=== PATIENT | female | born 1940 | race Caucasian/White ===

== ENCOUNTER → 2021-10-06 12:21 | Outpatient (BNVA) | payer MEDICARE, SELFPAY | PROVIDERS: Family Provider Nurse Practitioner Family; PCP Family Medicine; Visit Provider Family Medicine | DX: R41.3 Other amnesia (principal) | CPT/HCPCS: 80053; 82607; 84443; 85025 ==

== ENCOUNTER 2022-05-10 11:38 | Outpatient (CLI) | payer MEDICARE, SELFPAY ==
--- NOTE | 2022-05-10 11:46 | MM_ITS ---
WS: [id number] BILATERAL SCREENING DIGITAL TOMOSYNTHESIS MAMMOGRAM WITH CAD HISTORY: breast cancer screening COMPARISON: 01/23/2018, 12/06/2016 Bilateral CC and MLO views with tomosynthesis and synthetic mammography submitted. Computer aided det ection analyzed. Breast composition: The breasts are heterogeneously dense, which may obscure small masses. No suspici ous masses, microcalcifications or architectural distortion. Long-term stability 11 mm mass in the up per outer quadrant of the RIGHT breast. Benign bilateral breast calcifications. MM/[place] [id number] IMPRESSION: BI-RADS: 2-Benign FOLLOW UP: 1 Year Follow-up
== END 2022-05-10 11:39 | disposition home or self-care (01) ==
LOC: RAD 11:42
PROVIDERS: PCP Family Medicine; Visit Provider Family Medicine
DX: Z12.39 Encounter for other screening for malignant neoplasm of breast (principal); I10 Essential (primary) hypertension; R41.3 Other amnesia; Z85.41 Personal history of malignant neoplasm of cervix uteri
CPT/HCPCS: 77063; 77067; 80053; 80061; 82607; 84443; 85025

== ENCOUNTER 2023-06-11 11:35 | Emergency (ER) | payer MEDICARE, MEDICAID, SELFPAY ==
--- NOTE | 2023-06-11 11:35 | XRR_ITS ---
PROCEDURE INFORMATION: Exam: XR Chest Exam date and time: 06/11/2023 11:41 AM Age: 83 years old Clinical indication: Pain; Angina pectoris; Additional info: Cp TECHNIQUE: Imaging protocol: Radiologic exam of the chest. Views: 1 view. COMPARISON: No relevant prior studies available. FINDINGS: Lungs: The visualized lungs are clear. Pleural spaces: There is no pneumothorax. Heart/Mediastinum: There is a large hiatal hernia with elevation of the left hemidiaphragm. The heart size is not well assessed. Bones/joints: Unremarkable. XR/XR chest 1V portable 22012 IMPRESSION: 1. Large hiatal hernia with elevation of the left hemidiaphragm. 2. Otherwise no evidence of acute pulmonary process.
--- NOTE | 2023-06-11 11:38 | ECG_ITS ---
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 Measurements Intervals [place] Rate: 51 P: 97 TX: 183 QRS: -6 QRSD: 90 T: 58 QT: 441 QTc: 409 Interpretive Statements SINUS BRADYCARDIA No previous ECG available for comparison Electronically Signed On 06-11-2023 23:22:43 CDT by Henrique Brennan M.D. [id number]
[2023-06-11 11:45] VITALS: BP 104/67; PULSE 53; TEMP 36; O2SAT 95
--- NOTE | 2023-06-11 11:55 | CT_ITS ---
WS: [id number] CT HEAD NONCONTRAST HISTORY: dizzy TECHNIQUE: Contiguous axial imaging performed through the brain in 2.5 mm imaging. Bone and soft tiss ue windows. Sagittal and coronal reformats reviewed. All CT scans at [facility] use at least one of these dose optimization techniques: automated exposure control; mA and/or kV adjustment per pa tient size (includes targeted exams where dose is matched to clinical indication); or iterative recon struction. DLP: 1037.08 mGy.cm COMPARISON: None available. No acute intracranial hemorrhage, midline shift or mass effect. High density LEFT parafalcine supraventricular mass measures 14 x 7 mm. Mass extends to the LEFT of t he interhemispheric falx at the level of the posterior corpus callosum. There are a few punctate area s of calcification. Favor this is probably a meningioma. No edema within the adjacent brain. Ventricles: Normal size with no hydrocephalus. Paranasal sinuses: Small mucous retention cyst or polyp in the posterior RIGHT ethmoid air cells. No air-fluid levels. Mastoid air cells: Well pneumatized. Calvarium and scalp: Negative. CT/CT head wo con* [id number] IMPRESSION: 1. No acute intracranial hemorrhage or edema. 2. High density mass with calcification LEFT posterior parafalcine location me asures 14 x 7 mm. Favor meningioma. This can be further evaluated by MRI with c ontrast.
[2023-06-11 11:56] VITALS: BP 104/67; PULSE 55; RESP 16; O2SAT 98
[2023-06-11 11:59] LABS: Basophils % 0.2 %; Eosinophils % 0.1 %; Hematocrit 47.1 % (36-47); Lymphocytes # 1.6 10^3/uL (0.8-4.8); Mean Corpuscular HGB Conc 32.5 g/dL (30-55); Mean Corpuscular Hemoglobin 29.9 pg (27-33); Mean Corpuscular Volume 92.2 fl (85-98); Mean Platelet Volume 9.4 fL (7.4-10.4); Monocytes # 0.7 10^3/uL (0.2-0.9); Monocytes % 7.4 %; Neutrophils # 6.97 10^3/uL (1.8-7.7); Neutrophils % 74.9 %; Nucleated Red Blood Cells % 0 %; Platelet Count 270 10^3/cmm (157-399); Red Blood Count 5.11 10^6/uL (3.85-5.65); Red Cell Distribution Width 13.6 % (12.1-15.1); White Blood Count 9.31 10^3/uL (3.29-11.43)
--- NOTE | 2023-06-11 12:01 | ED_ITS ---
HPI - Syncope 2 General: Chief Complaint: Syncope Stated Complaint: Syncope Time Seen by Provider: 06/11/23 11:35 Source: patient and EMS Mode of arrival: EMS Limitations: no limitations History of Present Illness: 83-year-old female states she has had so me episodes of feeling lightheaded over the last 2 weeks she states she was at her PCP today states she had been fasting and felt some weakness and felt lightheaded she denies passing out she denies any headache or pain anywhere has had some slight nausea denies any vomiting or diarrhea states she feels improved here currently Associated symptoms: Reports nausea; Deny abdominal pain, chest pain, fever(s) or headache(s) Review of Systems 2 Const: Denies: fever(s), chills, body aches or change in appetite Eyes: Denies: blurry vision or eye discomfort ENMT: Denies: throat pain or dental pain Card: Reports: pre-syncope; Denies: chest pain Resp: Denies: dyspnea GI: Reports: nausea; Denies: abdominal pain, vomiting or diarrhea Musc: Denies: neck pain or back pain Skin/Breast: Denies: rash Neuro: Denies: headache(s) PFSH ED 2 PFSH: Medical History History of polycythemia vera Diaphragmatic hernia large left diaphragmatic hernia on outside imaging History of cervical cancer 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 on 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 Hypertension Surgical History History of bilateral knee replacement History of hysterectomy Family History Father CAD (coronary artery disease) Mother Cancer stomach Congestive heart failure (CHF) Daughter Cancer breast Social History Smoking and tobacco/nicotine status: never used tobacco/nicotine Alcohol intake: never Substance/Drug Use: never Physical Exam 2 Const: COMMON NORMALS: no acute distress, patient oriented x3 and healthy appearing HENMT: COMMON NORMALS: normocephalic and atraumatic HEAD & SCALP: n ormocephalic and atraumatic Eye: COMMON NORMALS: conjunctivae normal CONJUNCTIVA: Yes conjunctivae normal Neck/C-Spine: COMMON NORMALS: full ROM Chest: COMMONS NORMALS: normal inspection of the chest Resp: COMMON NORMALS: normal respiratory effort, No retractions, No use of accessory muscles and clear to auscultation bilaterally AUSCULTATION: clear to auscultation bilaterally Cardio: COMMON NORMALS: regular rate, regular rhythm and No murmurs present (Cardio) RATE: regular rate RHYTHM: regular rhythm GI: COMMON NORMALS: Normal to inspection, nondistended, normoactive bowel sounds present, Soft to palpation, non-tender and no masses PALPATION: Yes Soft to palpation Extremity: COMMON NORMALS: normal to inspection and full ROM Neuro: COMMON NORMALS: patient oriented x3, moves all extremities and no focal motor deficits Psych: COMMON NORMALS: mental status grossly normal, Normal thought process present and cooperative THOUGHT PROCESS: Normal thought process present Skin: COMMON NORMALS: no rashes or lesions noted and no wounds GENERAL SKIN EXAM: no rashes or lesions noted Course 2 Vital Signs: Vital signs: Vital Signs Temperature 96.8 F L 06/11/23 11:45 Pulse Rate 53 L 06/11/23 14:11 Respiratory Rate 16 06/11/23 14:11 Blood Pressure 92/61 06/11/23 14:11 Pulse Oximetry 94 06/11/23 14:11 Oxygen Delivery Me thod Room Air 06/11/23 14:11 MDM - Syncope Medical Decision Making Patient presents here with near syncopal episode she feels improved here blood work head CT is all normal she is not anemic no signs of cardiac cause she is stable for discharge she is follow-up with PCP and return if worsening she understands agrees to plan Medical Records I reviewed the patient's medical records. Lab Data I reviewed the patient's lab results. 06/11/23 11:54 06/11/23 11:54 Radiology Impressions Chest X-Ray 06/11/23 11:35 IMPRESSION: 1. Large hiatal hernia with elevation of the left hemidiaphragm. 2. Otherwise no evidence of acute pulmonary process. Head CT 06/11/23 11:55 IMPRESSION: 1. No acute intracranial hemorrhage or edema. 2. High density mass with calcification LEFT posterior parafalcine location measures 14 x 7 mm. Favor meningioma. This can be further evaluated by MRI with contrast. Laboratory Results WBC 9.31 10^3/uL (3.29-11.43) 06/11/23 11:54 RBC 5.11 10^6/uL (3.85-5.65) 06/11/23 11:54 Hgb 15.30 g/dL (11.27-16.99) 06/11/23 11:54 Hct 47.1 % (36-47) H 06/11/23 11:54 MCV 92.2 fl (85-98) 06/11/23 11:54 MCH 29.9 pg (27-33) 06/11/23 11:54 MCHC 32.5 g/dL (30-55) 06/11/23 11:54 RDW 13.6 % (12.1-15.1) 06/11/23 11:54 Plt Count 270 10^3/cmm (157-399) 06/11/23 11:54 MPV 9.4 fL (7.4-10.4) 06/11/23 11:54 Neut % (Auto) 74.9 % 06/11/23 11:54 Lymph % (Auto) 17.0 % 06/11/23 11:54 [place] % (Auto) 7.4 % 06/11/23 11:54 Eos % (Auto) 0.1 % 06/11/23 11:54 Baso % (Auto) 0.2 % 06/11/23 11:54 Neut # (Auto) 6.97 10^3/uL (1.8-7.7) 06/11/23 11:54 Lymph # (Auto) 1.6 10^3/uL (0.8-4.8) 06/11/23 11:54 [place] # (Auto) 0.7 10^3/uL (0.2-0.9) 06/11/23 11:54 Eos # (Auto) 0.0 10^3/uL (0.0-0.8) 06/11/23 11:54 Baso # (Auto) 0.0 10^3/uL (0.0-0.1) 06/11/23 11:54 Nucleated RBC % (auto) 0 % 06/11/23 11:54 Nucleated RBCs # 0.0 /100WBC 06/11/23 11:54 Sodium 141 mmol/L (136-145) 06/11/23 11:54 Potassium 3.9 mmol/L (3.5-5.1) 06/11/23 11:54 Chloride 101 mmol/L (98-107) 06/11/23 11:54 Carbon Dioxide 25 mmol/L (22-29) 06/11/23 11:54 Anion Gap 18.9 (5-19) 06/11/23 11:54 BUN 26 mg/dL (8-23) H 06/11/23 11:54 Creatinine 1.6 mg/dL (0.5-0.9) H 06/11/23 11:54 GFR Calculation Not Reportable 06/11/23 11:54 Glucose 147 mg/dL (65-115) H 06/11/23 11:54 Calculated Osmolality 299 mOsm/kg (285-295) H 06/11/23 11:54 Calcium 9.9 mg/dL (8.5-10.5) 06/11/23 11:54 Total Bilirubin 1.9 mg/dL (0.15-1.2) H 06/11/23 11:54 AST 14 U/L (0-32) 06/11/23 11:54 ALT 13 U/L (0-33) 06/11/23 11:54 Alkaline Phosphatase 68 U/L (35-105) 06/11/23 11:54 Troponin T Baseline 16 ng/L (0-10) H 06/11/23 11:54 Troponin T 120 Minute 14.23 ng/L (0-10) H 06/11/23 14:21 Delta Troponin T -1.77 ABS# (0-10) L 06/11/23 14:21 Total Protein 7.3 g/dL (6.6-8.7) 06/11/23 11:54 Albumin 4.0 g/dL (3.5-5.2) 06/11/23 11:54 Globulin 3.3 g/dL (1.3-4.6) 06/11/23 11:54 Lipase 25 U/L (13-60) 06/11/23 11:54 All radiology interpretation(s) finalized by discharge EKG Data EKG 1: I personally reviewed and interpreted this EKG as follows: EKG interpretation date: 06/11/23 EKG interpretation time: 11:57 Interpretation: sinus amie hr [address] or t wave abnormalities qrs 90 qtc 419 EKG 2: I personally reviewed and interpreted this EKG as follows: EKG interpretation date: 06/11/23 EKG interpretation time: 13:45 Interpretation: sinus amie hr [address] elevation qrs 86 qtc 422 Discharge Plan Discharge Patient Disposition: Home Clinical Impression: Near syncope Condition: Stable Prescriptions: New ondansetron 4 mg tablet,disintegrating 4 mg PO Q6H PRN (Reason: nausea and vomiting) Qty: 14 0RF No Action aspirin [Adult Low Dose Aspirin] 81 mg tablet,delayed release (DR/EC) 81 mg PO QAM cholecalciferol (vitamin D3) 50 mcg (2,000 unit) capsule 50 mcg PO DAILY@21 furosemide 20 mg tablet 20 mg PO DAILY PRN (Reason: Edema) indapamide 2.5 mg tablet 2.5 mg PO QAM spironolactone 25 mg tablet 12.5 mg PO QAM amlodipine 10 mg tablet 10 mg PO DAILY@21 losartan 100 mg tablet 100 mg PO QAM Discharge Orders: Discharge ED (Routine); Ordered 06/11/23 Ordered By: Sal Hughes Referrals: Louisa Benton MD [Primary Care Provider] - 1-3 days Discharge Diet: Advance as tolerated Discharge Activity: Resume usual activity Patient Instructions: Near Syncope (ED) Coding Level of Care Code ED [place] [employer] for Dario Huff
[2023-06-11 12:16] LABS: Alanine Aminotransferase 13 U/L (0-33); Alkaline Phosphatase 68 U/L (35-105); Aspartate Amino Transferase 14 U/L (0-32); Blood Urea Nitrogen 26 mg/dL (8-23); Calcium 9.9 mg/dL (8.5-10.5); Carbon Dioxide 25 mmol/L (22-29); Chloride 101 mmol/L (98-107); Globulin 3.3 g/dL (1.3-4.6); Glucose 147 mg/dL (65-115); Lipase 25 U/L (13-60); Osmolality Calculated 299 mOsm/kg (285-295); Sodium 141 mmol/L (136-145); Total Bilirubin 1.9 mg/dL (0.15-1.2); Total Protein 7.3 g/dL (6.6-8.7)
[2023-06-11 12:17] LABS: Troponin(5th) Baseline 16 ng/L (0-10)
[2023-06-11 12:19] LABS: Anion Gap 18.9 (5-19); Potassium 3.9 mmol/L (3.5-5.1)
[2023-06-11 13:13] VITALS: BP 100/61; PULSE 54; RESP 16; O2SAT 90
--- NOTE | 2023-06-11 13:38 | PC.PHAR ---
pts daughter verified pts medications-pts daughter states the pts bisoprolol 5mg daily was dced ext shows last filled 03/16/23 90d/s-pts daughter states the pt takes lasix prn ext shows last filled 06/16/22 30d/s 20mg daily prn-
--- NOTE | 2023-06-11 13:45 | ECG_ITS ---
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 Measurements Intervals [place] Rate: 57 P: 90 MS: 194 QRS: -19 QRSD: 86 T: 66 QT: 429 QTc: 418 Interpretive Statements SINUS BRADYCARDIA Compared to ECG 06/11/2023 11:57:37 No significant changes Electronically Signed On 06-11-2023 23:24:24 CDT by Henrique Brennan M.D. [id number]
[2023-06-11 14:11] VITALS: BP 92/61; PULSE 53; RESP 16; O2SAT 94
[2023-06-11] MEDS: ondansetron 2 mg/ML SDV 2 mL 4 MG IVP (14:33)
[2023-06-11 14:57] LABS: Troponin 5 2HR 14.23 ng/L (0-10)
[2023-06-11 14:59] LABS: Troponin 5 2HR Delta -1.77 ABS# (0-10)
[2023-06-11] MEDS: ketorolac 30 mg/mL INJ 15 MG IVP (15:21)
[2023-06-11 15:35] VITALS: BP 91/63; PULSE 61; RESP 16; O2SAT 91
== END 2023-06-11 15:36 | disposition home or self-care (01) ==
PROVIDERS: Emergency Provider Emergency Medicine; PCP Family Medicine
DX: R55 Syncope and collapse (principal); Z79.82 Long term (current) use of aspirin; I10 Essential (primary) hypertension; Z85.41 Personal history of malignant neoplasm of cervix uteri
CPT/HCPCS: 36415; 70450; 71045; 80053; 83690; 84484; 85025; 93005; 96374; 96375; 99285; J1885; J2405